=== PATIENT | female | born 1965 | race Caucasian/White ===

== ENCOUNTER 2020-08-23 10:13 | Emergency (ER) | payer OTHER, SELFPAY ==
--- NOTE | 2020-08-23 10:27 | ED.FEMALEGU ---
HPI - Female Genitourinary General Chief complaint: Urogenital-Female Stated complaint: Urogenital-Female Time Seen by Provider: 08/23/20 11:00 Source: patient and RN notes reviewed Mode of arrival: ambulatory Limitations: no limitations History of Present Illness HPI Narrative: 54-year-old female presents with concern for urinary tract infection. She reports 4-day history of urgency, frequency, hematuria, low back pain. She denies nausea, vomiting, fever. MD elicited complaint: UTI Related Data Home Medications Medication Instructions Recorded Confirmed acetaminophen [Tylenol] 650 mg PO Q8H 08/23/20 08/23/20 albuterol 90 mcg INHALATION BID 08/23/20 08/23/20 amlodipine 5 mg PO DAILY 08/23/20 08/23/20 aspirin 81 mg PO DAILY 08/23/20 08/23/20 atorvastatin 20 mg PO DAILY 08/23/20 08/23/20 famotidine 40 mg PO DAILY 08/23/20 08/23/20 fluoxetine 20 mg PO DAILY 08/23/20 08/23/20 hydralazine 25 mg PO QID 08/23/20 08/23/20 isosorbide mononitrate 60 mg PO DAILY 08/23/20 08/23/20 lisinopril 5 mg PO DAILY 08/23/20 08/23/20 metoprolol tartrate 25 mg PO DAILY 08/23/20 08/23/20 Allergies Allergy/AdvReac Type Severity Reaction Status Date / Time azithromycin Allergy Swelling Verified 08/23/20 10:50 celecoxib [From Celebrex] Allergy Swelling Verified 08/23/20 10:50 Review of Systems Review of Systems: Narrative: CONSTITUTIONAL: Denies malaise, chills, sweats, or fever. CARDIOVASCULAR: Denies chest pain, palpitations, or edema. RESPIRATORY: Denies cough or dyspnea. GASTROINTESTINAL: Denies abdominal pain, nausea, vomiting, diarrhea GENITOURINARY: Denies dysuria, frequency, urgency, hematuria. MUSCULOSKELETAL: Reports low back pain. Denies myalgia. All systems reviewed & are unremarkable except as noted in HPI and below PMFSH Comments At time of signature, agree with nursing past medical, surgical, social and family history. There is no relevant family history pertinent to the presenting complaint Exam Narrative: Exam Narrative: GENERAL: Well-appearing, well-nourished, and in no acute distress. HEAD: Normocephalic. EYES: PERRLA, conjunctivae clear. NECK: Supple. No lymphadenopathy CHEST: Clear to auscultation. No respiratory distress. HEART: Regular rate and rhythm. ABDOMEN: Soft, nontender upon palpation, nondistended, normal active bowel sounds, no palpable or pulsatile masses, no guarding. No CVA tenderness SKIN: Warm, dry, no rash. NEURO: Alert and oriented x3. PSYCH: Normal mood and affect Course Course Emergency Course: Patient is aware of diagnosis, understands and agrees to treatment plan. Anticipatory guidance given. Patient agrees to follow-up as directed and is aware of reasons to seek care at the emergency department. Portions of this record may have been created with voice recognition software Vital Signs Vital signs: Vital Signs Temperature 98.5 F 08/23/20 10:40 Pulse Rate 62 08/23/20 10:40 Respiratory Rate 20 08/23/20 10:40 Blood Pressure 184/74 H 08/23/20 10:40 Pulse Oximetry 100 08/23/20 10:40 Temperature 98.5 F 08/23/20 10:40 Pulse Rate 62 08/23/20 10:40 Respiratory Rate 20 08/23/20 10:40 Blood Pressure 184/74 H 08/23/20 10:40 Pulse Oximetry 100 08/23/20 10:40 Reviewed. Patient has history of hypertension MDM - Female Genitourinary MDM Narrative Medical decision making narrative: Exam findings and UA show no acute concerns or changes; patient is non-toxic appearing and is in no distress. Patient is appropriate for outpatient treatment and follow-up. Lab Data Labs: Urine Glucose Negative Reference Range: Negative Urine Bilirubin Negative Reference Range: Negative Urine Ketone Negative Reference Range: Negative Urine Specific [place] 1.010
[2020-08-23 10:40] VITALS: BP 184/74; PULSE 62; RESP 20; TEMP 36.9; O2SAT 100
== END 2020-08-23 11:15 | disposition home or self-care (01) ==
PROVIDERS: Emergency Provider Nurse Practitioner; PCP Internal Medicine
DX: N39.0 Urinary tract infection, site not specified (principal); E78.00 Pure hypercholesterolemia, unspecified; J44.9 Chronic obstructive pulmonary disease, unspecified; I13.10 Hypertensive heart and chronic kidney disease without heart failure, with stage 1 through stage 4 chronic kidney disease, or unspecified chronic kidney disease; N18.30 Chronic kidney disease, stage 3 unspecified; Z95.1 Presence of aortocoronary bypass graft; F41.9 Anxiety disorder, unspecified
CPT/HCPCS: 81003; 87086; 99213; G0463